=== PATIENT | female | born 1985 | race Caucasian/White ===

== ENCOUNTER 2017-02-15 23:35 | Emergency (ER) | payer SELFPAY ==
[2017-02-16] MEDS ORDERED: fentaNYL 100 MCG/2 ML SDV ONE (00:10)
[2017-02-16 00:41] LABS: ACETAMINOPHEN 0 ug/mL (10-30)
[2017-02-16] MEDS ORDERED: Propofol 200 MG/20 ML SDV IVPUSH STA (00:58)
[2017-02-16] MEDS ORDERED: fentaNYL 100 MCG/2 ML SDV IVPUSH ONE ×2 (00:58→01:08)
[2017-02-16] MEDS ORDERED: Midazolam 1 MG/ML 5 ML SDV IVPUSH STA ×2 (00:58)
[2017-02-16] MEDS ORDERED: Etomidate 2 MG/ML 20 ML SDV IVPUSH STA (00:58)
[2017-02-16] MEDS ORDERED: Succinylcholine 200 MG/10 ML MDV IV STA (00:58)
[2017-02-16] MEDS ORDERED: Potassium Chloride 10 MEQ in Premix Bag 1 BAG IV SCH (01:15)
--- NOTE | 2017-02-16 01:23 | EDM.PDOC ---
ED HPI GENERAL MEDICAL PROBLEM - General Chief Complaint: Drug or Alcohol Abuse Stated Complaint: [facility] Time Seen by Provider: 02/15/17 23:36 - History of Present Illness INITIAL COMMENTS - FREE TEXT/NARRATIVE: 31-year-old female brought in by EMS with apparent overdose. Patient was quite combative out in the field she received 5 mg of Haldol Versed uncertain of the dose and sodium bicarbonate. She was thought to taking hydrocodone she had a prescription given to her on the fourth of this month with 30 tablets and this is all gone and Benadryl no other evidence was found at the scene but would suggest otherwise. The patient was quite combative yelling obscenities at the scene. The context of this apparent overdose is not known. 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 and one amp. sodium bicarb - Related Data Allergies Allergy/AdvReac Type Severity Reaction Status Date / Time No Known Allergies Allergy Verified 02/15/17 23:36 Home Meds: Home Meds Baclofen [Lioresal] 1 tab PO BID 10/31/16 [History] Hydrocodone/Acetaminophen [Hydrocodon-Acetaminophen 5-325] 1 each PO TID [History] Past Medical History Musculoskeletal History: Reports: Back pain, chronic Neurological History: Reports: Migraines - Past Surgical History GI Surgical History: Reports: Cholecystectomy Female Surgical History: Reports: D&C, Tubal ligation Social & Family History - Tobacco Use Smoking Status *Q: Unknown Ever Smoked Years of Tobacco use: 10 Packs/Tins Daily: 0.5 - Caffeine Use Caffeine Use: Reports: None - Recreational Drug Use Recreational Drug Use: No - Living Situation & Occupation Living situation: Reports: single, with significant other (Boyfriend), with family (3 kids) Occupation: unemployed ED ROS GENERAL - Review of Systems Review Of Systems: Unable To Obtain - Physical Exam Exam: See Below Exam Limited By: Altered mental status General Appearance: other (She is somewhat sedated upon arrival vital signs stable). No: alert Eye Exam: bilateral eye: PERRL Ears: normal external exam, normal canal, normal TMs Nose: normal inspection Throat/Mouth: Normal inspection, Normal lips, Normal oropharynx, No airway compromise Head Exam: atraumatic, normocephalic, other (She reportedly was hitting her head on something out in the field) Neck: normal inspection, supple, full range of motion. No: lymphadenopathy (L) , lymphadenopathy (R) Respiratory/Chest: other ( after the patient was here short time she developed decreased respiratory drive this had to be supplemented with bag mask ventilation shortly thereafter she was intubated) Cardiovascular: normal peripheral pulses, regular rate, rhythm GI/Abdominal: Normal Bowel Sounds, Soft Course - Vital Signs Last Recorded V/S: Last Vital Signs Temp 36.2 C 02/15/17 23:36 Pulse 68 02/16/17 02:35 Resp 12 02/16/17 02:35 BP 171/98 H 02/16/17 02:35 Pulse Ox 100 02/16/17 02:35 - Orders/Labs/Meds Orders: Active Orders 24 hr Category Date Time Status EKG 12 Lead [EKG Documentation Completion] [RC] STAT Care 02/15/17 23:47 Active RT Ventilator, Adult [RC] ASDIRECTED Care 02/16/17 00:35 Active Chest 1V Frontal [CR] Stat Exams 02/15/17 23:46 Taken Chest 1V Frontal [CR] Stat Exams 02/16/17 01:00 Taken Chest 1V Frontal [CR] Stat Exams 02/16/17 01:01 Taken Head wo Cont [CT] Stat Exams 02/15/17 23:47 Taken Desired Level of Sedation (RASS) [AST] Click To Edit Oth 02/16/17 00:59 Ordered Labs: Laboratory Tests 02/15/17 02/15/17 02/15/17 Range/Units 23:35 23:35 23:35 WBC 5.84 (3.98-10.04) K/mm3 RBC 4.70 (3.98-5.22) M/mm3 Hgb 13.9 (11.2-15.7) gm/L Hct 41.1 (34.1-44.9) % MCV 87.4 (79.4-94.8) fl MCH 29.6 (25.6-32.2) pg MCHC 33.8 (32.2-35.5) g/dl RDW Std Deviation 48.1 H (36.4-46.3) fL Plt Count 224 (182-369) K/mm3 MPV 9.5 (9.4-12.3) fl Neutrophils % (Manual) 73 H (40-60) % Band Neutrophils % 0 (0-10) % Lymphocytes % (Manual) 24 (20-40) % Atypical Lymphs % 0 % Monocytes % (Manual) 3 (2-10) % Eosinophils % (Manual) 0 L (0.7-5.8) % Basophils % (Manual) 0 L (0.1-1.2) Platelet Estimate Adequate RBC Morph Comment Normal Puncture Site ABG pH (7.35-7.45) ABG pCO2 (35.0-45.0) mmHg ABG pO2 (80.0-100.0) mmHg ABG HCO3 (22.0-26.0) meq/L ABG O2 Saturation (96.0-97.0) % ABG Base Excess (-2-2.0) A-a Gradient mmHg O2 Delivery Device FiO2 (21.00-100.00) % Tidal Volume cc PEEP cmH20 Sodium 146 H (136-145) mEq/L Potassium 2.8 L (3.5-5.1) mEq/L Chloride 109 H (98-107) mEq/L Carbon Dioxide 24 (21-32) mEq/L Anion Gap 15.8 H (5-15) BUN 7 (7-18) mg/dL Creatinine 0.9 (0.55-1.02) mg/dL Est Cr Clr Drug Dosing 88.07 mL/min Estimated GFR (MDRD) > 60 (>60) mL/min BUN/Creatinine Ratio 7.8 L (14-18) Glucose 74 (74-106) mg/dL Calcium 8.1 L (8.5-10.1) mg/dL Total Bilirubin 0.4 (0.2-1.0) mg/dL AST 25 (15-37) U/L ALT 28 (14-59) U/L Alkaline Phosphatase 72 (46-116) U/L Total Protein 7.3 (6.4-8.2) g/dl Albumin 3.9 (3.4-5.0) g/dl Globulin 3.4 gm/dL Albumin/Globulin Ratio 1.2 (1-2) HCG, Qual (NEGATIVE) Salicylates 3.0 (2.8-20) mg/dL Urine Opiates Screen (NEGATIVE) Ur Buprenorphine Scrn (NEGATIVE) Ur Oxycodone Screen (NEGATIVE) Urine Methadone Screen (NEGATIVE) Ur Propoxyphene Screen (NEGATIVE) Acetaminophen 0 L (10-30) ug/mL Ur Barbiturates Screen (NEGATIVE) Ur Tricyclics Screen (NEGATIVE) Ur Phencyclidine Scrn (NEGATIVE) Ur Amphetamine Screen (NEGATIVE) U Methamphetamines Scrn (NEGATIVE) U Benzodiazepines Scrn (NEGATIVE) U Cocaine Metab Screen (NEGATIVE) U Marijuana (THC) Screen (NEGATIVE) Ethyl Alcohol 0.00 (0.00) gm% 02/15/17 02/15/17 02/16/17 Range/Units 23:35 23:35 00:55 WBC (3.98-10.04) K/mm3 RBC (3.98-5.22) M/mm3 Hgb (11.2-15.7) gm/L Hct (34.1-44.9) % MCV (79.4-94.8) fl MCH (25.6-32.2) pg MCHC (32.2-35.5) g/dl RDW Std Deviation (36.4-46.3) fL Plt Count (182-369) K/mm3 MPV (9.4-12.3) fl Neutrophils % (Manual) (40-60) % Band Neutrophils % (0-10) % Lymphocytes % (Manual) (20-40) % Atypical Lymphs % % Monocytes % (Manual) (2-10) % Eosinophils % (Manual) (0.7-5.8) % Basophils % (Manual) (0.1-1.2) Platelet Estimate RBC Morph Comment Puncture Site Rt radial ABG pH 7.37 (7.35-7.45) ABG pCO2 41.4 (35.0-45.0) mmHg ABG pO2 134.0 H (80.0-100.0) mmHg ABG HCO3 23.6 (22.0-26.0) meq/L ABG O2 Saturation 99.6 H (96.0-97.0) % ABG Base Excess -1.0 (-2-2.0) A-a Gradient 71 mmHg O2 Delivery Device Ventilator FiO2 40.00 (21.00-100.00) % Tidal Volume 450.0 cc PEEP 5.0 cmH20 Sodium (136-145) mEq/L Potassium (3.5-5.1) mEq/L Chloride (98-107) mEq/L Carbon Dioxide (21-32) mEq/L Anion Gap (5-15) BUN (7-18) mg/dL Creatinine (0.55-1.02) mg/dL Est Cr Clr Drug Dosing mL/min Estimated GFR (MDRD) (>60) mL/min BUN/Creatinine Ratio (14-18) Glucose (74-106) mg/dL Calcium (8.5-10.1) mg/dL Total Bilirubin (0.2-1.0) mg/dL AST (15-37) U/L ALT (14-59) U/L Alkaline Phosphatase (46-116) U/L Total Protein (6.4-8.2) g/dl Albumin (3.4-5.0) g/dl Globulin gm/dL Albumin/Globulin Ratio (1-2) HCG, Qual Negative (NEGATIVE) Salicylates (2.8-20) mg/dL Urine Opiates Screen Presumptive positive H (NEGATIVE) Ur Buprenorphine Scrn Negative (NEGATIVE) Ur Oxycodone Screen Negative (NEGATIVE) Urine Methadone Screen Negative (NEGATIVE) Ur Propoxyphene Screen Negative (NEGATIVE) Acetaminophen (10-30) ug/mL Ur Barbiturates Screen Negative (NEGATIVE) Ur Tricyclics Screen Negative (NEGATIVE) Ur Phencyclidine Scrn Negative (NEGATIVE) Ur Amphetamine Screen Presumptive positive H (NEGATIVE) U Methamphetamines Scrn Presumptive positive H (NEGATIVE) U Benzodiazepines Scrn Negative (NEGATIVE) U Cocaine Metab Screen Negative (NEGATIVE) U Marijuana (THC) Screen Presumptive positive H (NEGATIVE) Ethyl Alcohol (0.00) gm% Meds: Medications Discontinued Medications Generic Name Dose Route Start Last Admin Trade Name Freq PRN Reason Stop Dose Admin Etomidate 20 mg 02/16/17 00:58 02/16/17 00:03 Amidate IVPUSH 02/16/17 00:59 20 mg ONETIME STA Administration Fentanyl Confirm 02/16/17 00:10 02/16/17 01:01 Sublimaze Administered 02/16/17 00:11 Not Given Dose 100 mcg .ROUTE .STK-MED ONE Fentanyl 50 mcg 02/16/17 00:58 02/16/17 00:10 Sublimaze IVPUSH 02/16/17 00:59 50 mcg ONETIME ONE Administration Fentanyl 50 mcg 02/16/17 01:08 02/16/17 00:20 Sublimaze IVPUSH 02/16/17 01:09 50 mcg ONETIME ONE Administration Propofol Confirm 02/16/17 00:27 02/16/17 01:01 Diprivan 100 Ml Administered 02/16/17 00:28 Not Given Dose 100 mls @ as directed .ROUTE .STK-MED ONE Propofol 50 mls @ 17 mls/hr 02/16/17 01:00 02/16/17 01:06 Diprivan 50 Ml IV 17 mls/hr TITRATE FAVIO 17 mls/hr Protocol Administration Potassium Chloride 10 meq/ 100 mls @ 100 mls/hr 02/16/17 01:15 02/16/17 01:40 Premix IV 100 mls/hr ASDIRECTED FAVIO Administration Midazolam HCl 4 mg 02/16/17 00:58 02/16/17 00:10 Versed 1 Mg/Ml IVPUSH 02/16/17 00:59 4 mg ONETIME STA Administration Midazolam HCl 4 mg 02/16/17 00:58 02/16/17 00:20 Versed 1 Mg/Ml IVPUSH 02/16/17 00:59 4 mg ONETIME STA Administration Propofol 25 mg 02/16/17 00:58 02/16/17 00:28 Diprivan 20 Ml IVPUSH 02/16/17 00:59 25 mg ONETIME STA Administration Succinylcholine Chloride 120 mg 02/16/17 00:58 02/16/17 00:05 Quelicin IV 02/16/17 00:59 120 mg STAT STA Administration - Re-Assessments/Exams Free Text/Narrative Re-Assessment/Exam: 02/16/17 01:17 Patient came in minimally responsive. Vital signs are stable airway was stable she was sent to CT for a head scan after labs ordered she came back shortly after this she had a hard time maintaining ventilation. The patient was intubated with 7.5 ET tube with the assistance of a glide scope first attempt this was done RSI fashion using etomidate and succinyl choline placement was confirmed with color change she had good breath sounds in the right slightly diminished in the left chest x-ray confirmed what looks like a right mainstem intubation the tube was withdrawn 1 1/2 cm yielding good breath sounds on the left repeat x-ray confirms placement just above the jairon. Shortly after midnight I called . [facility] in [place] Dr. Javier excepted the patient at 00:15. Transportation is a little over an hour out. Labs pending other than CBC at the time of discussion with the excepting physician. I will update the emergency room when labs are back. Ingested substances or not clearly understood at this point it is suspected that Benadryl can be involved as well as hydrocodone police cannot come up with any other evidence. 02/16/17 02:39 Report and labs called and discussed with Dr. Alarcon Departure - Departure Time of Disposition: 00:15 Disposition: DC/[facility]fer to [facility] 02 Clinical Impression: Drug overdose, Respiratory failure - Discharge Information Referrals: PCP,Unknown [Primary Care Provider] - - My Orders Last 24 Hours: My Active Orders 02/15/17 23:46 Chest 1V Frontal [CR] Stat 02/15/17 23:47 EKG 12 Lead [EKG Documentation Completion] [RC] STAT Head wo Cont [CT] Stat 02/16/17 00:35 RT Ventilator, Adult [RC] ASDIRECTED 02/16/17 00:59 Desired Level of Sedation (RASS) [AST] Click To Edit 02/16/17 01:00 Chest 1V Frontal [CR] Stat 02/16/17 01:01 Chest 1V Frontal [CR] Stat - Assessment/Plan Last 24 Hours: My Active Orders 02/15/17 23:46 Chest 1V Frontal [CR] Stat 02/15/17 23:47 EKG 12 Lead [EKG Documentation Completion] [RC] STAT Head wo Cont [CT] Stat 02/16/17 00:35 RT Ventilator, Adult [RC] ASDIRECTED 02/16/17 00:59 Desired Level of Sedation (RASS) [AST] Click To Edit 02/16/17 01:00 Chest 1V Frontal [CR] Stat 02/16/17 01:01 Chest 1V Frontal [CR] Stat
[2017-02-16 03:00] VITALS: BP 171/98
--- NOTE | 2017-02-16 10:24 | CR ---
Chest: Portable view of the chest was obtained. Comparison: Previous chest x-ray performed earlier on the same day (12:10 AM). Tip of endotracheal tube lies approximately 1.7 cm above the jairon. Nasogastric tube courses off the inferior edge of the film into the stomach. Heart size and mediastinum are normal. Lungs are clear. Incidental surgical clips are again noted from prior cholecystectomy. Impression: 1. Tube position as noted above. 2. Nothing acute is otherwise seen. Diagnostic code #3
--- NOTE | 2017-02-16 10:24 | CR ---
Chest: Frontal view of the chest was obtained. Comparison: Previous chest x-ray of 02/15/17. Heart size and mediastinum are normal. Endotracheal tube is seen. Tip of endotracheal tube lies approximately 2.2 cm above the jairon. Nasogastric tube is seen coursing off the inferior edge of the film into the stomach. Surgical clips are noted from prior cholecystectomy. Visualized lungs are clear. Bony structures are grossly intact. Impression: 1. Endotracheal tube and nasogastric tube as noted above. 2. Nothing acute is otherwise seen on frontal chest x-ray. Diagnostic code #3
--- NOTE | 2017-02-16 10:24 | CT ---
Head CT Technique: Multiple axial sections through the brain were obtained. Intravenous contrast was not utilized. Comparison: No previous intracranial imaging. Findings: Ventricles along with basal cisterns and sulci over the convexities are within normal limits for the patient's age. No abnormal parenchymal densities are seen. No evidence of intracranial hemorrhage. No midline shift or mass effect is seen. Bone window settings were reviewed. Visualized mastoid and middle ear cavities are clear. Visualized paranasal sinuses are clear. No acute calvarial abnormality is seen. Impression: 1. No acute intracranial abnormality is identified on noncontrast head CT study. Diagnostic code #1 I agree with preliminary report issued by Laguo (preliminary report dictated on 02/16/17, 1:14 AM Central Time)
--- NOTE | 2017-02-16 10:24 | CR ---
Chest: Portable view of the chest was obtained. Comparison: No previous chest x-ray. Heart size and mediastinum are normal. Lungs are clear. Bony structures are grossly intact. Surgical clips are seen within the upper right abdomen. Impression: 1. Nothing acute is identified on portable chest x-ray. Diagnostic code #1
== END 2017-02-16 02:35 ==
LOC: JD.ED 23:35
DX: T50.901A Poisoning by unspecified drugs, medicaments and biological substances, accidental (unintentional), initial encounter (principal); J96.90 Respiratory failure, unspecified, unspecified whether with hypoxia or hypercapnia; Z90.49 Acquired absence of other specified parts of digestive tract; Z98.51 Tubal ligation status
CPT/HCPCS: 31500; 36415; 36600; 51702; 70450; 71010; 80053; 80306; 82803; 84703; 85025; 93005; 96365; 96366; 96375; 99291; 99292; G0480; J0330; J2250; J3010; J3480; 99285; J2704

== ENCOUNTER 2017-03-02 10:21 | Emergency (ER) | payer MEDICAID, OTHER ==
[2017-03-02] MEDS ORDERED: Ketorolac 30 MG/ML SDV IM ONE (10:44)
--- NOTE | 2017-03-02 10:44 | EDM.PDOC ---
ED HPI GENERAL MEDICAL PROBLEM - General Chief Complaint: Back Pain or Injury Stated Complaint: BACK PAIN Time Seen by Provider: 03/02/17 10:38 - History of Present Illness INITIAL COMMENTS - FREE TEXT/NARRATIVE: 31-year-old female returns emergency room with right-sided neck and upper arm pain. This pain is been going on for the last 2-3 days progressively getting worse she woke up with it like this. The patient has baclofen and Essie at home she's been using the sporadically as well as some ibuprofen and this is not getting better The patient states she has chronic low back issues but the neck discomfort and arm pain is overshadowing this. Patient has not had any loss of neurologic function anywhere no loss of bowel or bladder control. Patient was seen by me here 2 weeks ago with an un intentional overdose of baclofen with some hydrocodone and some Benadryl. Patient states that she was not suicidal at the time he did not want herself however she was under increased stress due to social stressors. Patient denies she's had a tubal in the past. 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, NSAIDS Right Upper Back Pain Score (Numeric/FACES): 9 - Related Data Allergies Allergy/AdvReac Type Severity Reaction Status Date / Time No Known Allergies Allergy Verified 03/02/17 10:32 Home Meds: Home Meds Hydrocodone/Acetaminophen [Hydrocodon-Acetaminophen 5-325] 1 each PO TID [History] Past Medical History Musculoskeletal History: Reports: Back Pain, Chronic Neurological History: Reports: Migraines - Past Surgical History Female Surgical History: Reports: D&C, Tubal Ligation Social & Family History - Tobacco Use Smoking Status *Q: Unknown Ever Smoked Years of Tobacco use: 10 Packs/Tins Daily: 0.5 - Caffeine Use Caffeine Use: Reports: None - Recreational Drug Use Recreational Drug Use: No - Living Situation & Occupation Living situation: Reports: Single, with Significant Other, with Family Occupation: Unemployed ED ROS GENERAL - Review of Systems Review Of Systems: See Below Constitutional: Reports: No Symptoms. Denies: Fever, Chills HEENT: Reports: No Symptoms Respiratory: Reports: No Symptoms Cardiovascular: Reports: No Symptoms GI/Abdominal: Reports: No Symptoms : Reports: No Symptoms ED EXAM,LOWER BACK PAIN/INJURY - Physical Exam Exam: See Below Exam Limited By: No Limitations General Appearance: Alert, No Apparent Distress Head: Atraumatic, Normocephalic Neck: Tender Lateral (She's had significant discomfort in the right-sided posterior musculature and musculature extending into her shoulder.). No: Tender Midline Respiratory/Chest: No Respiratory Distress, Lungs Clear, Normal Breath Sounds Cardiovascular: Regular Rate, Rhythm, No Edema, No Murmur Extremities: Other (Patient has intact muscle strength in her right upper extremity she has a burning sensation that extends to her elbow goes down the lateral posterior aspect of the upper arm and into the elbow) Course - Vital Signs Last Recorded V/S: Last Vital Signs Temp 36.7 C 03/02/17 10:33 Pulse 100 03/02/17 10:33 Resp 14 03/02/17 10:33 BP 135/94 H 03/02/17 10:33 Pulse Ox 100 03/02/17 10:33 - Orders/Labs/Meds Meds: Medications Discontinued Medications Generic Name Dose Route Start Last Admin Trade Name Ramyq PRN Reason Stop Dose Admin Ketorolac Tromethamine 30 mg 03/02/17 10:44 03/02/17 10:59 Toradol IM 03/02/17 10:45 30 mg ONETIME ONE Administration - Re-Assessments/Exams Free Text/Narrative Re-Assessment/Exam: 03/02/17 10:52 At this point the patient will be given a IM dose of Toradol 30 mg we will x- ray her neck anticipate cervical MRI in the future. At this point I am not anticipating adjusting her home medications she needs to use ibuprofen on a regular basis use her baclofen as prescribed 3 times daily and her Essie as needed. She claims to have these at home I will not refill them with recent overdose. Patient understands this 03/02/17 12:28 patient will followup with her primary today x-ray of her cervical spine shows loss of lordotic curvature no acute fracture dislocation seen. We'll get her scheduled for an MRI. She has not received much improvement from the Toradol but will start ibuprofen on a regular basis 6 hours after discharge she will use her baclofen as directed 3 times daily and will use her hydrocodone as directed. Did discuss my concerns with her medication and recent overdose the patient denies any suicidal wishes or intent at this time. She voices understanding to using her routine medications and following up with her primary provider later today we will get her scheduled for a MRI with a cervical radiculopathy Departure - Departure Time of Disposition: 12:30 Disposition: Home, Self-Care 01 Clinical Impression: Cervical radiculopathy - Discharge Information Forms: ED Department Discharge Additional Instructions: return to the emergency room with any questions or problems. You have been given Toradol here in the emergency room, this is a strong Motrin- like medication, restart your Motrin on a regular basis 6 hours after leaving the emergency department. Use your baclofen as directed 3 times a day, use your hydrocodone only if needed. Followup with your provider as scheduled later today.
--- NOTE | 2017-03-02 12:26 | CR ---
Cervical spine: AP, lateral and odontoid views of the cervical spine were obtained. Comparison: No previous study. Vertebral body heights and disc spaces are maintained. Prevertebral soft tissues are normal. No subluxation or fracture is seen. Mild scoliosis is noted. Mild kyphosis is also present. Impression: 1. Mild kyphosis either positional or due to muscle spasm. 2. Slight scoliosis is also seen. 3. No bony abnormality is seen on three-view cervical spine study. Diagnostic code #2
[2017-03-02 12:48] VITALS: BP 140/82
== END 2017-03-02 12:47 | disposition home or self-care (01) ==
LOC: JD.ED 10:21
DX: M54.12 Radiculopathy, cervical region (principal); G43.909 Migraine, unspecified, not intractable, without status migrainosus; Z79.899 Other long term (current) drug therapy
CPT/HCPCS: 72040; 96372; 99284; J1885; 99283

== ENCOUNTER 2017-09-15 19:33 | Emergency (ER) | payer SELFPAY ==
[2017-09-15 19:47] VITALS: BP 142/98
--- NOTE | 2017-09-15 20:20 | EDM.PDOC ---
ED HPI GENERAL MEDICAL PROBLEM - General Chief Complaint: Abdominal Pain Stated Complaint: LOWER ABDOMIN PAIN Time Seen by Provider: 09/15/17 19:41 Source of Information: Reports: Patient, RN Notes Reviewed, Significant Other ( Boyfriend) History Limitations: Reports: No Limitations - History of Present Illness INITIAL COMMENTS - FREE TEXT/NARRATIVE: The patient states that she developed both right lower quadrant and left lower quadrant abdominal pain around 19:00 tonight, while urinating. She states that the right sided pain is worse than the left. It is sharp and crampy in character. She has not identified any modifiers. She states that she has had bilateral flank pain for the past 2 days. No recent urinary symptoms, such as dysuria, urinary frequency, or urinary urgency. No recent fever, nausea, vomiting, constipation, or diarrhea. No prior similar symptoms. The patient does not have a PCP. Lower Abdomen Pain Score (Numeric/FACES): 8 - Related Data Allergies Allergy/AdvReac Type Severity Reaction Status Date / Time No Known Allergies Allergy Verified 09/15/17 19:47 Home Meds: Home Meds . [No Known Home Meds] 09/15/17 [History] Past Medical History Genitourinary History: Reports: Renal Calculus RN EMBEDDED History: Reports: Other (See Below) (Ovarian cyst) Musculoskeletal History: Reports: Back Pain, Chronic Psychiatric History: Reports: Addiction, Suicide Attempt (Overdose of [place], Baclofen, Benadryl, methamphetamine, MJ 02/15/17) Endocrine/Metabolic History: Reports: Obesity/BMI 30+ - Past Surgical History GI Surgical History: Reports: Cholecystectomy Female Surgical History: Reports: D&C (x 2), Tubal Ligation Social & Family History - Tobacco Use Smoking Status *Q: Current Every Day Smoker Years of Tobacco use: 9 Packs/Tins Daily: 0.5 - Caffeine Use Caffeine Use: Reports: Soda - Alcohol Use Alcohol Use History: No - Recreational Drug Use Recreational Drug Use: Yes Drug Use in Last 12 Months: Yes Recreational Drug Type: Reports: Marijuana/Hashish (last = February 2017), Methamphetamine, Other (see below) (Prescription opioids) - Living Situation & Occupation Living situation: Reports: Single, with Significant Other (Boyfriend) Occupation: Unemployed ED ROS GENERAL - Review of Systems Review Of Systems: See Below Constitutional: Reports: No Symptoms HEENT: Reports: No Symptoms Respiratory: Reports: No Symptoms Cardiovascular: Reports: No Symptoms Endocrine: Reports: No Symptoms GI/Abdominal: Reports: No Symptoms : Reports: No Symptoms Musculoskeletal: Reports: No Symptoms Skin: Reports: No Symptoms Neurological: Reports: No Symptoms Psychiatric: Reports: No Symptoms Hematologic/Lymphatic: Reports: No Symptoms Immunologic: Reports: No Symptoms ED EXAM, GI/ABD - Physical Exam Exam: See Below Exam Limited By: No Limitations General Appearance: Alert, WD/WN, No Apparent Distress Eyes: Bilateral: Normal Appearance, EOMI Ears: Normal External Exam, Hearing Grossly Normal, Normal TMs Nose: Normal Inspection, No Blood Throat/Mouth: Normal Inspection, Normal Lips, Normal Voice, No Airway Compromise Head: Atraumatic, Normocephalic Neck: Normal Inspection, Full Range of Motion Respiratory/Chest: No Respiratory Distress, Lungs Clear, Normal Breath Sounds, No Accessory Muscle Use Cardiovascular: Normal Peripheral Pulses, Regular Rate, Rhythm, No Gallop, No JVD, No Murmur, No Rub GI/Abdominal Exam: Normal Bowel Sounds, Soft, No Organomegaly, No Distention, No Abnormal Bruit, No Mass, Pelvis Stable, Tender (Suprapubic region only. Nontender elsewhere.), Other (Obese) (Female) Exam: Deferred Rectal (Female) Exam: Deferred Back Exam: Normal Inspection, Full Range of Motion. No: CVA Tenderness (L), CVA Tenderness (R) Extremities: Normal Inspection, Normal Range of Motion, No Pedal Edema, Normal Capillary Refill Neurological: Alert, Oriented, Normal Cognition, No Motor/Sensory Deficits Psychiatric: Normal Affect Skin Exam: Warm, Dry, Intact, Normal Color, No Rash Course - Vital Signs Last Recorded V/S: Last Vital Signs Temp 35.8 C 09/15/17 19:44 Pulse 90 09/15/17 19:44 Resp 16 09/15/17 19:44 BP 142/98 H 09/15/17 19:44 Pulse Ox 98 09/15/17 19:44 - Orders/Labs/Meds Orders: Active Orders 24 hr Category Date Time Status Abdomen Pelvis w Cont [CT] Stat Exams 09/15/17 22:29 Taken Transvaginal Non OB [US] Stat Exams 09/15/17 21:11 Taken Sodium Chloride 0.9% [Normal Saline] 1,000 ml Med 09/15/17 21:15 Active IV ASDIRECTED Sodium Chloride 0.9% [Saline Flush] Med 09/15/17 23:27 Active 10 ml FLUSH ONETIME PRN Medication Orders Sodium Chloride (Normal Saline) 1,000 mls @ 150 mls/hr IV ASDIRECTED FAVIO Last Admin: 09/15/17 21:25 Dose: 150 mls/hr Sodium Chloride (Saline Flush) 10 ml FLUSH ONETIME PRN PRN Reason: Keep Vein Open Last Admin: 09/15/17 23:50 Dose: 10 ml Labs: Laboratory Tests 09/15/17 09/15/17 09/15/17 Range/Units 20:15 20:15 21:22 WBC 7.54 (3.98-10.04) K/mm3 RBC 4.72 (3.98-5.22) M/mm3 Hgb 13.3 (11.2-15.7) gm/L Hct 40.4 (34.1-44.9) % MCV 85.6 (79.4-94.8) fl MCH 28.2 (25.6-32.2) pg MCHC 32.9 (32.2-35.5) g/dl RDW Std Deviation 47.1 H (36.4-46.3) fL Plt Count 257 (182-369) K/mm3 MPV 10.0 (9.4-12.3) fl Neutrophils % (Manual) 66 H (40-60) % Band Neutrophils % 0 (0-10) % Lymphocytes % (Manual) 30 (20-40) % Atypical Lymphs % 0 % Monocytes % (Manual) 4 (2-10) % Eosinophils % (Manual) 0 L (0.7-5.8) % Basophils % (Manual) 0 L (0.1-1.2) Platelet Estimate Adequate Plt Morphology Comment Normal RBC Morph Comment Normal Sodium (136-145) mEq/L Potassium (3.5-5.1) mEq/L Chloride (98-107) mEq/L Carbon Dioxide (21-32) mEq/L Anion Gap (5-15) BUN (7-18) mg/dL Creatinine (0.55-1.02) mg/dL Est Cr Clr Drug Dosing mL/min Estimated GFR (MDRD) (>60) mL/min BUN/Creatinine Ratio (14-18) Glucose (74-106) mg/dL Calcium (8.5-10.1) mg/dL Total Bilirubin (0.2-1.0) mg/dL AST (15-37) U/L ALT (14-59) U/L Alkaline Phosphatase (46-116) U/L Total Protein (6.4-8.2) g/dl Albumin (3.4-5.0) g/dl Globulin gm/dL Albumin/Globulin Ratio (1-2) Lipase (73-393) U/L Urine Color Yellow (Yellow) Urine Appearance Clear (Clear) Urine pH 6.0 (5.0-8.0) Ur Specific [place] > or = 1.030 (1.005-1.030) Urine Protein Negative (Negative) Urine Glucose (UA) Negative (Negative) Urine Ketones Negative (Negative) Urine Occult Blood Negative (Negative) Urine Nitrite Negative (Negative) Urine Bilirubin Negative (Negative) Urine Urobilinogen 0.2 (0.2-1.0) Ur Leukocyte Esterase Negative (Negative) Urine RBC Not seen (0-5) /hpf Urine WBC 0-5 (0-5) /hpf Ur Epithelial Cells 0-5 (0-5) /hpf Urine Bacteria Not seen (FEW) /hpf Urine Mucus Not seen (FEW) /hpf Urine HCG, Qual Negative (NEGATIVE) 09/15/17 Range/Units 21:22 WBC (3.98-10.04) K/mm3 RBC (3.98-5.22) M/mm3 Hgb (11.2-15.7) gm/L Hct (34.1-44.9) % MCV (79.4-94.8) fl MCH (25.6-32.2) pg MCHC (32.2-35.5) g/dl RDW Std Deviation (36.4-46.3) fL Plt Count (182-369) K/mm3 MPV (9.4-12.3) fl Neutrophils % (Manual) (40-60) % Band Neutrophils % (0-10) % Lymphocytes % (Manual) (20-40) % Atypical Lymphs % % Monocytes % (Manual) (2-10) % Eosinophils % (Manual) (0.7-5.8) % Basophils % (Manual) (0.1-1.2) Platelet Estimate Plt Morphology Comment RBC Morph Comment Sodium 139 (136-145) mEq/L Potassium 3.9 (3.5-5.1) mEq/L Chloride 105 (98-107) mEq/L Carbon Dioxide 27 (21-32) mEq/L Anion Gap 10.9 (5-15) BUN 12 (7-18) mg/dL Creatinine 0.7 (0.55-1.02) mg/dL Est Cr Clr Drug Dosing 108.01 mL/min Estimated GFR (MDRD) > 60 (>60) mL/min BUN/Creatinine Ratio 17.1 (14-18) Glucose 93 (74-106) mg/dL Calcium 9.0 (8.5-10.1) mg/dL Total Bilirubin 0.1 L (0.2-1.0) mg/dL AST 20 (15-37) U/L ALT 30 (14-59) U/L Alkaline Phosphatase 103 (46-116) U/L Total Protein 7.2 (6.4-8.2) g/dl Albumin 3.5 (3.4-5.0) g/dl Globulin 3.7 gm/dL Albumin/Globulin Ratio 1.0 (1-2) Lipase 149 (73-393) U/L Urine Color (Yellow) Urine Appearance (Clear) Urine pH (5.0-8.0) Ur Specific [place] (1.005-1.030) Urine Protein (Negative) Urine Glucose (UA) (Negative) Urine Ketones (Negative) Urine Occult Blood (Negative) Urine Nitrite (Negative) Urine Bilirubin (Negative) Urine Urobilinogen (0.2-1.0) Ur Leukocyte Esterase (Negative) Urine RBC (0-5) /hpf Urine WBC (0-5) /hpf Ur Epithelial Cells (0-5) /hpf Urine Bacteria (FEW) /hpf Urine Mucus (FEW) /hpf Urine HCG, Qual (NEGATIVE) Meds: Medications Generic Name Dose Route Start Last Admin Trade Name Freq PRN Reason Stop Dose Admin Sodium Chloride 1,000 mls @ 150 mls/hr 09/15/17 21:15 09/15/17 21:25 Normal Saline IV 150 mls/hr ASDIRECTED FAVIO Administration Sodium Chloride 10 ml 09/15/17 23:27 09/15/17 23:50 Saline Flush FLUSH 10 ml ONETIME PRN Administration Keep Vein Open Discontinued Medications Generic Name Dose Route Start Last Admin Trade Name Luc PRN Reason Stop Dose Admin Diatrizoate Meglum/Diatrizoate Sod 90 ml 09/15/17 23:26 09/15/17 23:50 Gastrografin 37% PO 09/15/17 23:27 90 ml ONETIME ONE Administration Iopamidol 125 ml 09/15/17 23:26 09/15/17 23:50 Isovue-300 (61%) IVPUSH 09/15/17 23:27 125 ml ONETIME ONE Administration Ketorolac Tromethamine 30 mg 09/15/17 22:27 09/15/17 22:32 Toradol IVPUSH 09/15/17 22:28 30 mg ONETIME STA Administration - Re-Assessments/Exams Free Text/Narrative Re-Assessment/Exam: 09/15/17 22:28 Transvaginal ultrasound is read by [facility] as "Negative pelvic ultrasound." 09/16/17 00:44 CT of the abdomen and pelvis with oral and IV contrast is read by [facility] as "No sign of acute intra-abdominal pathology." 09/16/17 00:49 Test results discussed with the patient and her boyfriend. Today's workup is entirely unremarkable, and does not swing the cause of her lower abdominal pain. I will discharge her home with a referral to Dr. Ray, should her symptoms continue. Departure - Departure Time of Disposition: 00:50 Disposition: Home, Self-Care 01 Condition: Good Clinical Impression: Abdominal pain of unknown etiology - Discharge Information Referrals: PCP,None [Primary Care Provider] - Ann Ray MD [Physician] - Forms: ED Department Discharge Additional Instructions: You were seen in the emergency room for lower abdominal and bilateral flank pain. Workup in the ER included blood work, a urinalysis, a urine test, a pelvic ultrasound, and a CT scan of your abdomen and pelvis. Your entire workup was unremarkable, and does not explain the cause of your pain. If your symptoms continue, we recommend that you follow-up with Dr. Ann Ray in the clinic, for further evaluation. If any other problems, please do not hesitate to return to the ER. - My Orders Last 24 Hours: My Active Orders 09/15/17 21:11 Transvaginal Non OB [US] Stat 09/15/17 21:15 Sodium Chloride 0.9% [Normal Saline] 1,000 ml IV ASDIRECTED 09/15/17 22:29 Abdomen Pelvis w Cont [CT] Stat 09/15/17 23:27 Sodium Chloride 0.9% [Saline Flush] 10 ml FLUSH ONETIME PRN - Assessment/Plan Last 24 Hours: My Active Orders 09/15/17 21:11 Transvaginal Non OB [US] Stat 09/15/17 21:15 Sodium Chloride 0.9% [Normal Saline] 1,000 ml IV ASDIRECTED 09/15/17 22:29 Abdomen Pelvis w Cont [CT] Stat 09/15/17 23:27 Sodium Chloride 0.9% [Saline Flush] 10 ml FLUSH ONETIME PRN
[2017-09-15] MEDS ORDERED: Sodium Chloride 0.9% 1,000 ML IV SCH (21:15)
[2017-09-15] MEDS ORDERED: Ketorolac 30 MG/ML SDV IVPUSH STA (22:27)
[2017-09-15] MEDS ORDERED: Diatrizoate Meglumine/Diatrizoate Sodium 37% 120 ML Bottle PO ONE (23:26)
[2017-09-15] MEDS ORDERED: Iopamidol 612 MG/ML 150 ML Bottle IVPUSH ONE (23:26)
[2017-09-15] MEDS ORDERED: Sodium Chloride 0.9% 10 ML Syringe FLUSH PRN (23:27)
--- NOTE | 2017-09-16 16:17 | CT ---
CT abdomen and pelvis Technique: Multiple axial sections were obtained from above the dome of the diaphragm inferiorly to the pubic symphysis. Intravenous and oral contrast was utilized. Delayed images were also obtained through the bladder. Comparison: No prior CT abdomen or pelvis exam. Findings: Visualized lung bases show nothing acute. Liver shows no focal parenchymal abnormality. Surgical clips are seen from prior cholecystectomy. Spleen appears within normal limits. Adrenal glands show no nodule. Kidneys show symmetric contrast enhancement without hydronephrosis or mass. Pancreas is within normal limits. Aorta shows no aneurysmal dilatation. No retroperitoneal adenopathy or mesenteric abnormalities are seen. No pelvic mass or adenopathy is seen. Delayed images show contrast within the distal ureters and within the bladder. Mild increased stool is seen throughout the colon. No inflammatory change or free fluid is seen. Appendix is felt to be visualized and appears within normal limits. Bone window settings were reviewed which appear within normal limits for the patient's age. Impression: 1. Previous cholecystectomy. 2. Mild increased stool within colon. 3. Nothing acute is appreciated on CT study of the abdomen and pelvis. Diagnostic code #2 I agree with preliminary report issued by [facility] ([facility] preliminary report dictated on 09/16/17, 1:28 AM Central Time)
--- NOTE | 2017-09-16 16:17 | US ---
Pelvic ultrasound: Multiple real-time images were obtained transvaginally. Comparison: No prior pelvic ultrasound. Uterus is anteverted. Endometrial thickness is 1.2 cm. No myometrial abnormality is identified. Minimal free fluid is seen within the cul-de-sac which is physiologic. Follicles are noted within both ovaries. No larger cyst or solid abnormality is identified. Minimal fluid is seen within the endocervical canal which is incidental. Measurements: Uterus: Length 7.7 cm, AP height is 4.6 cm, transverse width is 5.8 cm Right ovary: 3.4 x 1.3 x 1.7 cm Left ovary: 3.6 x 1.3 x 2.7 cm Impression: 1. Incidental findings. Diagnostic code #2 I agree with preliminary report issued by [facility] ([facility] preliminary report dictated on 09/15/17, 11:16 PM Central Time)
== END 2017-09-16 01:03 | disposition home or self-care (01) ==
LOC: JD.ED 19:33
DX: R10.31 Right lower quadrant pain (principal); R10.32 Left lower quadrant pain; F17.210 Nicotine dependence, cigarettes, uncomplicated; Z90.49 Acquired absence of other specified parts of digestive tract
CPT/HCPCS: 36415; 74177; 76830; 80053; 81001; 81025; 83690; 85025; 96361; 96374; 99284; J1885; J7040; J7050; Q9963; Q9967